=== PATIENT | female | born 1990 | race Hispanic/Latino ===

== ENCOUNTER 2023-07-06 08:23 | Day surgery (SDC) | payer BC ==
[2023-07-02 17:15] VITALS: BMI 48.5
[2023-07-02 17:33] LABS: Hematocrit 34.6 % (34.9-44.5); Hemoglobin 10.9 g/dL (12.0-15.5); Mean Corpuscular HGB CONC 31.5 g/dL (32.0-36.0); Mean Corpuscular Hemoglobin 25.7 pg (27.0-33.0); Mean Corpuscular Volume 81.6 fl (81.6-98.3); Mean Platelet Volume 10.3 fl (7.4-10.4); Platelet Count 366 10x3/uL (150-450); RBC Distribution Width 15.2 % (11.5-14.5); Red Blood Cell (RBC) Count 4.24 10x6/uL (3.90-5.03); White Blood Cell (WBC) Count 8.2 10x3/uL (3.5-10.5)
[2023-07-02 17:47] LABS: BHCG - Serum Negative (NEGATIVE); Pregs Control Background? CLEAR/WHITE (CLR/WHITE); Pregs Control Bar Appear? YES (CONTROL BAR)
[2023-07-06] MEDS ORDERED: Gabapentin 300 MG CAP ONE (08:31)
[2023-07-06] MEDS ORDERED: Famotidine/PF 20 mg/2ml Vial ONE (08:31)
[2023-07-06] MEDS ORDERED: CeleCOXIB 100 MG CAP ONE (08:31)
[2023-07-06] MEDS ORDERED: Scopolamine 1.5 mg/72 hour Patch ONE (09:08)
[2023-07-06] MEDS ORDERED: Bupivacaine PF 0.5% 30 ML VIAL ONE (09:31)
[2023-07-06] MEDS ORDERED: CEFAZOLIN 2 GM VIAL ONE (10:06)
[2023-07-06] MEDS ORDERED: Ondansetron PF 4 MG/2 ML Vial ONE (10:20)
[2023-07-06] MEDS ORDERED: Dexamethasone 4 mg/ml Vial ONE (10:20)
[2023-07-06] MEDS ORDERED: Midazolam HCl 2 mg/2 ml Vial ONE (10:20)
[2023-07-06] MEDS ORDERED: Rocuronium Bromide 10 MG/ML (10ML VIAL) ONE (10:20)
[2023-07-06] MEDS ORDERED: PROPOFOL 20 ML ONE ×3 (10:20→10:47)
[2023-07-06] MEDS ORDERED: Fentanyl 250 MCG/5 ML VIAL ONE (10:20)
[2023-07-06] MEDS ORDERED: Glycopyrrolate 0.2 MG/ML 5 ML SYRINGE ONE (10:57)
[2023-07-06] MEDS ORDERED: fentaNYL 50 mcg/mL 1 mL Vial ONE (11:58)
[2023-07-06] MEDS ORDERED: HYDROcodone/Acetaminophen 5/325 mg Tablet ONE (12:54)
== END 2023-07-06 14:10 | disposition home or self-care (01) ==
LOC: CSHSDC 08:23
PROVIDERS: ATTEND Obstetrics & Gynecology
PROC: 0UB98ZZ Excision of Uterus, Via Natural or Artificial Opening Endoscopic (ICD-10-PCS; principal; 2023-07-06)
PROC: 0UB54ZZ Excision of Right Fallopian Tube, Percutaneous Endoscopic Approach (ICD-10-PCS; principal; 2023-07-06)
PROC: 0UB04ZZ Excision of Right Ovary, Percutaneous Endoscopic Approach (ICD-10-PCS; principal; 2023-07-06)
DX: D27.0 Benign neoplasm of right ovary (principal); N92.0 Excessive and frequent menstruation with regular cycle; N84.0 Polyp of corpus uteri
CPT/HCPCS: 36415; 84703; 85027; 86850; 86900; 86901; 88305; 88307; J1100; J2250; J2405; J2704; J3010; S0020; S0028